=== PATIENT | male | born 1950 | race Caucasian/White ===

== ENCOUNTER 2024-02-11 21:34 | Emergency (ER) | payer MEDICARE, SELFPAY ==
[2024-02-11 21:34] VITALS: BP 187/109; PULSE 96; RESP 18; TEMP 20.5; O2SAT 97; BMI 31.4
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
[2024-02-11 22:15] VITALS: BP 171/106; PULSE 70; O2SAT 94
[2024-02-11 22:30] VITALS: PULSE 72; O2SAT 96
[2024-02-11] MEDS: iohexol 350 mg/mL 500 mL Btl (per mL) IV (22:37)
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
[2024-02-11 23:08] LABS: Basophils % 0.2 %; Hematocrit 38.7 % (37-53); Lymphocytes # 16.6 10^3/uL (0.8-4.8); Lymphocytes % 75.4 %; Mean Corpuscular HGB Conc 32.6 g/dL (30-55); Mean Corpuscular Hemoglobin 29.9 pg (27-33); Mean Corpuscular Volume 91.7 fl (82-101); Mean Platelet Volume 9.8 fL (7.4-10.4); Monocytes # 0.5 10^3/uL (0.2-0.9); Neutrophils # 4.89 10^3/uL (1.8-7.7); Neutrophils % 22.2 %; Nucleated Red Blood Cells % 0 %; Platelet Count 112 10^3/cmm (157-399); Red Blood Count 4.22 10^6/uL (3.85-5.65); Red Cell Distribution Width 15.3 % (12.1-15.1); White Blood Count 22.08 10^3/uL (3.29-11.43)
[2024-02-11 23:15] VITALS: BP 177/97; PULSE 79; RESP 16; O2SAT 93
[2024-02-11 23:52] VITALS: BP 174/93; PULSE 78; RESP 17; O2SAT 94
[2024-02-11 23:56] LABS: Alanine Aminotransferase 31 U/L (0-41); Albumin Level 4.3 g/dL (3.5-5.2); Alkaline Phosphatase 85 U/L (40-130); Anion Gap 16.1 (5-19); Aspartate Amino Transferase 44 U/L (0-40); Blood Urea Nitrogen 13 mg/dL (8-23); Calcium 9.5 mg/dL (8.5-10.5); Carbon Dioxide 23 mmol/L (22-29); Chloride 108 mmol/L (98-107); Creatinine Clr Calc Pharmacy 88.5624; Globulin 1.9 g/dL (1.3-4.6); Glucose 95 mg/dL (65-115); Osmolality Calculated 296 mOsm/kg (285-295); Potassium 4.1 mmol/L (3.5-5.1); Sodium 143 mmol/L (136-145); Total Bilirubin 2.8 mg/dL (0.15-1.2); Total Protein 6.2 g/dL (6.6-8.7)
[2024-02-12 00:31] VITALS: BP 181/103; PULSE 79; RESP 16; O2SAT 96
[2024-02-12] MEDS: labetalol 5 mg/mL SDV 20mL 10 MG IVP (00:43)
[2024-02-12] MEDS: tetanus-diphtheria tox (adult) 0.5 mL SDV IM (00:45)
== END 2024-02-12 01:12 | disposition short-term general hospital (02) ==
PROVIDERS: Emergency Provider Emergency Medicine
DX: S06.5XAA Traumatic subdural hemorrhage with loss of consciousness status unknown, initial encounter (principal); S22.20XA Unspecified fracture of sternum, initial encounter for closed fracture; S22.43XA Multiple fractures of ribs, bilateral, initial encounter for closed fracture; S01.01XA Laceration without foreign body of scalp, initial encounter; S50.312A Abrasion of left elbow, initial encounter; S80.212A Abrasion, left knee, initial encounter; V49.40XA Driver injured in collision with unspecified motor vehicles in traffic accident, initial encounter; Z23 Encounter for immunization
CPT/HCPCS: 12002; 36415; 70450; 71260; 72125; 73080; 73552; 74177; 80053; 85025; 90471; 90714; 96374; 99285; J3490; Q9967